=== PATIENT | male | born 1965 | race Two or more races ===

== ENCOUNTER 2019-05-17 21:36 | Emergency (ER) | payer OTHER ==
[~2019-05-17] VITALS: Ht 189.9 cm; Wt 152.4 kg
--- NOTE | 2019-05-17 21:40 | NUR ---
PT AAOX4. BIB EMS C/O ABDOMINAL PAIN X5 DAYS. PT ABD BLOATED AND PT STATED HE WAS UNABLE TO HAVE BM FOR X DAYS. PLACED ON MONITOR AND PULSE OX. AT BEDSIDE FOR EVAL.
[2019-05-17] MEDS ORDERED: HYDROMORPHONE 1 MG/1 ML DISP.SYRIN ONE (22:19)
[2019-05-17] MEDS ORDERED: ONDANSETRON HCL/PF 4 MG/2 ML VIAL ONE (22:19)
[2019-05-17] MEDS: HYDROMORPHONE INJ 2 MG/ML DISP.SYRIN IV ONE (22:26)
[2019-05-17] MEDS: ONDANSETRON HCL/PF 4 MG/2 ML VIAL IVP ONE (22:26)
[2019-05-17] MEDS: IV NS 0.9% 1,000 ML BAG IV ONE (22:26)
[2019-05-17 22:29] LABS: BASOPHILS % (AUTO) 0.2 % (0.0-2.0); EOSINOPHILS % (AUTO) 0.2 % (0.0-6.0); HEMATOCRIT 47 % (39-51); HEMOGLOBIN 15.4 g/dL (13.5-17.5); LYMPHOCYTES # (AUTO) 1.4 /CMM (0.8-4.8); LYMPHOCYTES % (AUTO) 9.5 % (20.0-44.0); MEAN CORPUSCULAR HGB CONC 33 g/dl (31.0-36.0); MEAN CORPUSCULAR VOLUME 92 fL (80-96); MONOCYTES # (AUTO) 0.4 /CMM (0.1-1.30); MONOCYTES % (AUTO) 2.6 % (2.0-12.0); NEUTROPHILS # (AUTO) 13.1 /CMM (1.8-8.9); NEUTROPHILS % (AUTO) 87.5 % (43.0-81.0); PLATELET COUNT (AUTO) 157 /CMM (150-450); RED BLOOD CELL COUNT(AUTO) 5.12 MIL/uL (4.5-6.0)
[2019-05-17 22:37] LABS: CALCIUM, SERUM 9.2 mg/dL (8.5-10.1); CREATININE 1.2 mg/dL (0.6-1.3); POTASSIUM 4.1 mmol/L (3.5-5.1)
[2019-05-17 22:43] LABS: ALBUMIN 3.9 g/dL (3.4-5.0); BILIRUBIN,DIRECT 0.3 mg/dL (0.0-0.2); BILIRUBIN,TOTAL 1.9 mg/dL (0.2-1.0); TOTAL PROTEIN, SERUM 7.8 g/dL (6.4-8.2)
--- NOTE | 2019-05-17 22:47 | NUR ---
BROUGHT TO CT
[2019-05-17 22:48] LABS: APPEARANCE,URINE Clear (CLEAR); BILIRUBIN,URINE MODERATE (NEGATIVE); BLOOD, URINE Trace-intact Ery/uL (NEGATIVE); COLOR,URINE Yellow (YELLOW); KETONES,URINE 40 (NEGATIVE); LEUKOCYTE ESTERASE ,URINE Negative (NEGATIVE); NITRITE, URINE Negative (NEGATIVE); PH,URINE 5.5 (5.0-8.0); PROTEIN,URINE 100 mg/dl (NEGATIVE); UGLUCOSE Negative (NEGATIVE)
[2019-05-17 22:58] LABS: BACTERIA,URINE Rare /HPF (None Seen); SQUAMOUS EPITHELIAL CELL,UR Few /HPF (None Seen); WBC,URINE NONE SEEN /HPF (0-3)
--- NOTE | 2019-05-17 23:11 | NUR ---
PT SAT 90 ON RA PLACED ON 2L NC NOW SAT 97
--- NOTE | 2019-05-17 23:27 | NUR ---
PER PATIENT, DENIES PAIN. VSS.
--- NOTE | 2019-05-17 23:37 | NUR ---
[facility] CALLED PER DR CHAPIN.
[2019-05-18] MEDS ORDERED: HYDROMORPHONE INJ 2 MG/ML DISP.SYRIN ONE (00:09)
[2019-05-18] MEDS: HYDROMORPHONE 1 MG/1 ML DISP.SYRIN IV ONE (00:10)
--- NOTE | 2019-05-18 00:13 | NUR ---
1MG dilaudid given per MD verbal order.
--- NOTE | 2019-05-18 00:44 | NUR ---
PER [facility] CARD CHART, CD, PAYING TELLER AT [phone]
[2019-05-18 01:50] VITALS: BP 142/95
--- NOTE | 2019-05-18 01:57 | NUR ---
PATIENT TRANSFERED TO [facility].
--- NOTE | 2019-05-18 01:57 | NUR ---
REPORT GIVEN TO RUT STEINBERG FOR [facility] AND [facility].
== END 2019-05-18 02:00 | disposition short-term general hospital (02) ==
LOC: ER 21:37
DX: K56.699 Other intestinal obstruction unspecified as to partial versus complete obstruction (principal); K42.0 Umbilical hernia with obstruction, without gangrene; R11.2 Nausea with vomiting, unspecified; G89.29 Other chronic pain; E66.01 Morbid (severe) obesity due to excess calories; Z68.39 Body mass index [BMI] 39.0-39.9, adult
CPT/HCPCS: 36415; 74176; 80048; 80076; 81001; 83690; 85025; 85730; 96361; 96374; 96375; 96376; 99285; J1170 ×2; J2405; J7030; 81000-TC